=== PATIENT | male | born 1970 | race Caucasian/White ===

== ENCOUNTER → 2018-03-04 08:39 | Outpatient (REF) | payer SELFPAY | LOC: OM 08:39 | PROVIDERS: PCP Family Medicine; Visit Provider Nurse Practitioner Family | DX: Z02.79 Encounter for issue of other medical certificate (principal) ==

== ENCOUNTER 2018-03-26 11:12 | Outpatient (CLI) | payer OTHER, SELFPAY ==
[2018-03-26 12:57] LABS: ALT 31 U/L (12-78); AST 18 U/L (15-37); Albumin 3.9 g/dL (3.4-5.0); Alkaline Phosphatase 85 U/L (46-116); BUN 24 mg/dL (7-18); Bilirubin, Total 0.4 mg/dL (0.2-1.0); CREATININE 1.15 mg/dL (0.70-1.30); Calcium 9.8 mg/dL (8.5-10.1); Chloride 100 mmol/L (98-107); Cholesterol 172 mg/dL (50-200); Glucose 97 mg/dL (70-100); HDL Cholesterol 34 mg/dL (40-60); LDL CHOLESTEROL 125 mg/dL (<100); Potassium 4.7 mmol/L (3.5-5.1); Sodium 138 mmol/L (136-145); Total Protein 7.6 g/dL (6.4-8.2); Triglyceride 107 mg/dL (30-150)
== END 2018-03-26 11:32 ==
PROVIDERS: PCP Family Medicine; Visit Provider Family Medicine
DX: I10 Essential (primary) hypertension (principal)
CPT/HCPCS: 36415; 80053; 80061; 83721

== ENCOUNTER 2018-09-27 08:02 | Emergency (ER) | payer OTHER, SELFPAY ==
[2018-09-27 08:08] VITALS: BP 161/97; PULSE 102; RESP 20; TEMP 36.7; O2SAT 96
--- NOTE | 2018-09-27 08:31 | DI.RAD_ITS ---
SYMPTOM/DIAGNOSIS: LT RIB PAIN WORSE WITH COUGHING AND MOVEMENT LEFT RIBS AND PA AND LATERAL CHEST: No priors. Heart size and pulmonary vasculature are within normal limits. The lungs are clear. No effusions or pneumothoraces are identified. Mild degenerative changes are seen in the spine. There is a question of cortical irregularity at the anterior lateral aspect of the left ninth rib and a nondisplaced fracture could not be excluded. IMPRESSION: Question of a nondisplaced fracture of the anterior lateral aspect of the left ninth rib.
--- NOTE | 2018-09-27 09:11 | ED.GENADUL_ITS ---
Discharge Plan Disposition Patient Disposition: HOME Condition: Stable Discharge Details Chief Complaint: Chest/Rib Clinical Impression: Left rib fracture, Chronic cough, Post-nasal drip, History of environmental allergies Primary Care Provider: Flor Ace ED Provider: Sophie Ag Home Meds and New Rx's Prescriptions: Continued multivitamin [Daily Vitamin] 1 EACH tablet 1 tab PO DAILY RF: 0 ascorbic acid (vitamin C) 1,000 MG tablet 1,000 mg PO DAILY RF: 0 aspirin 325 MG tablet,delayed release (DR/EC) 325 mg PO DAILY RF: 0 albuterol sulfate [Proventil HFA] 6.7 GM HFA aerosol inhaler 1 puff Inhalation Q6H PRN Qty: 3 RF: 12 lisinopril-hydrochlorothiazide 1 EACH tablet 1 tab PO DAILY Qty: 90 RF: 12 acetaminophen [Tylenol] 325 MG tablet 650 mg PO Q6H PRN PRNQty: 180 RF: 0 ibuprofen 200 MG tablet 600 mg PO Q8H PRN PRNQty: 180 RF: 0 Discharge Instructions Instructions: Rib Fracture (ED), Allergies (ED), Acute Cough (ED) Additional Instructions: Alternate tylenol and motrin as needed and directed for pain. Continue to use the incentive spirometer as directed to help with deep breaths to prevent pneumonia. Alternate ice and heat to the affected area several times daily for 20 minutes at a time. Take [id number] allergy medication to help with seasonal or environmental allergies that may be the cause of your postnasal drip and chronic cough. Oral medication choices include Anneliese, Zyrtec or Claritin. Nasal spray choices include Nasacort, Nasonex or Flonase. You can try either an oral medication or nasal spray or both at the same time. Call your primary care doctor today to schedule follow-up appointment for reevaluation to discuss whether there is additional treatment required for your postnasal drip and cough or whether you need referral to ENT or pulmonary for evaluation. Return immediately to the emergency department any worsening or new concerning symptoms. Discharge Data Discharge Physician: Sophie Ag Medical Decision Making 48-year-old male who presents with left lateral rib pain for the past 2 weeks, worse this morning. Pain worse with deep breath, movement or cough and has no pain at all at rest. He also admits to a history of mainly dry and occasionally productive cough as well as postnasal drip over the past 2 months. He has a history of seasonal and environmental allergies to dust, pollen, and has 2 dogs at home. He denies fever, shortness of breath, anterior chest pain, nausea, vomiting or dizziness. He has no DVT/PE risk factors. He is not a smoker. His blood pressure is mildly elevated, he has a history of hypertension. Remainder vitals within normal limits. HR 80s on my evaluation. Afebrile, with normal respiratory rate and oxygen saturation. He has a localized area of tenderness to palpation left lateral lower rib cage. Otherwise his lungs are clear to auscultation. His abdomen is soft and nontender. He appears nontoxic. Due to patient's age and history of hypertension an EKG was obtained on arrival and notes a rate of 81, sinus with Q waves in the inferior and lateral leads. Patient denies a known history of HI. There are no acute ST findings. This is most likely appears musculoskeletal as his pain is reproducible. The so urce of his chronic cough appears most likely due to allergies causing postnasal drip. He denies any tearing or ripping chest pain so doubt dissection. He has no DVT/PE risk factors. PERC negative. Will obtain a left rib and PA lateral chest x-ray. 1000 -- notes a left ninth rib fracture but no other acute findings. Patient declines pain medication here or on discharge. He was given an incentive spirometer to encourage deep breathing to prevent pneumonia. Discussed with patient that the source of his chronic cough can likely be allergies and he is recommended to take oral or intranasal allergy medication [id number]. He declines any prescriptions for Motrin or allergy medication. He is instructed to follow-up with his primary care doctor for reevaluation and for referral to ENT or pulmonary if needs further evaluation including scope or pulmonary function testing. Patient instructed to return here immediately with any worsening or new concerning symptoms. Medical Records Medical records reviewed: Yes I reviewed the patient's medical records. Imaging Data Radiologic Study: Radiologist's impression: LEFT RIBS AND PA AND LATERAL CHEST: No priors. Heart size and pulmonary vasculature are within normal limits. The lungs are clear. No effusions or pneumothoraces are identified. Mild degenerative changes are seen in the spine. There is a question of cortical irregularity at the anterior lateral aspect of the left ninth rib and a nondisplaced fracture could not be excluded. IMPRESSION: Question of a nondisplaced fracture of the anterior lateral aspect of the left ninth rib. ECG Data Attestation: I personally reviewed and interpreted this ECG (s) as follows: Interpretation: Rate of 81, sinus, Q waves noted in 2, 3, aVF, V5 and V6. No acute ST elevation or depression. QTc 422. QRS 112. HPI General Mode of arrival: ambulatory . Date/Time Provider Initiated Documentation: 09/27/18 08:30 . Limitations to Documentation: no limitations . Information obtained by: patient . HPI Narrative: Patient is a 48-year-old male who presents to the ED with a complaint of left lateral rib pain for the past 2 weeks, worse this morning. 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 He states he is also had a dry cough which is occasionally productive over the past 2 months. He also admits to postnasal drip and a history of environmental and seasonal allergies. He states his rib pain is completely gone at rest, and only occurs with movement, coughing or deep breath. He states he took Tylenol this morning with some relief. He denies any fever, anterior chest pain, shortness of breath, nausea, vomiting, dizziness. He also denies any leg pain or swelling, recent travel or recent surgeries. Related Data Home Medications Medication Instructions Recorded Confirmed ascorbic acid (vitamin C) 1,000 mg PO DAILY 07/22/13 09/27/18 multivitamin [Daily Vitamin] 1 tab PO DAILY 07/22/13 09/27/18 acetaminophen [Tylenol] 650 mg PO Q6H PRN PRN #180 tab 08/17/15 09/27/18 ibuprofen 600 mg PO Q8H PRN PRN #180 tablet 08/17/15 09/27/18 aspirin 325 mg PO DAILY tab-cap 10/19/15 09/27/18 albuterol sulfate [Proventil HFA] 1 puff INHALATION Q6H PRN #3 03/05/17 09/27/18 inhaler lisinopril 20 1 tab PO DAILY #90 tab-cap 03/12/18 09/27/18 mg-hydrochlorothiazide 12.5 mg tablet Previous Rx's Medication Instructions Recorded acetaminophen [Tylenol] 650 mg PO Q6H PRN PRN #180 tab 08/17/15 ibuprofen 600 mg PO Q8H PRN PRN #180 tablet 08/17/15 lisinopril 20 1 tab PO DAILY #90 tab-cap 03/12/18 mg-hydrochlorothiazide 12.5 mg tablet Allergies Allergy/AdvReac Type Severity Reaction Status Date / Time enviromental Allergy rhinitis, Uncoded 09/27/18 08:11 itchey, burn General Stated Complaint: Chest/Rib JESSEE: 3 Review of Systems Review of Systems All systems reviewed & are unremarkable except as noted in HPI and below Constitutional Reports as per HPI, Denies chills and Denies fever(s) Eyes Denies blurry vision ENT Denies dizziness, Denies sore throat and Denies throat swelling Cardiovascular Reports chest pain and Denies dyspnea Respiratory Denies cough and Denies dyspnea Gastrointestinal Denies abdominal pain, Denies diarrhea and Denies vomiting Genitourinary Denies hematuria and Denies dysuria Musculoskeletal Denies back pain and Denies numbness Integumentary/Breasts Denies lesions and Denies rash Neurologic Denies dizziness, Denies focal weakness and Denies numbness Allergic/Immunologic Denies throat swelling [facility] Medical History Annual physical exam (Resolved) Annual physical exam (Resolved 10/19/15) Disorder of skin (Resolved) Elevated blood pressure reading (Resolved) S/P vasectomy (Resolved) Asthma Seasonal allergies Surgical History H/O arthroscopy of knee (Resolved) S/P meniscectomy (Resolved) Arthroplasty of knee (~1992) Excision, Skin Mass (~10/2007) Vasectomy Family History Mother Diabetes Essential hypertension Father Essential hypertension Alcohol abuse Prostate cancer Maternal Grandfather Essential hypertension Heart disease Maternal Grandmother Breast cancer Skin cancer Social History household members: other details: 3 highest education level completed: Bachelor's degree current occupational status: employed current occupation: [employer] pets and animals: Yes pets and animals: dog(s) what type of physical activity do you participate in: walking frequency: 5-6 times per week Smoking and Tabacco status: Never alcohol intake: current alcohol intake frequency: a few times a month substance use type: does not use pete/anabaptist: No preference special pete needs: No Exam Const General: cooperative and healthy appearing Orientation: alert and awake [facility] Head: normal to inspection Ears: hearing grossly normal bilaterally, external ears normal and TM's normal bilaterally General nose exam: external nose normal Face and sinus: normal facial exam Mouth: oral mucosae normal Teeth and gingiva: dentition normal Throat: posterior oropharynx normal, uvula midline, no peritonsillar masses and no postnasal drainage Eyes General: appearance normal, both eyes and all related structures Eyelids: eyelids normal EOM: EOM intact bilaterally Neck Neck: normal visual inspection Lymphatic: no lymphadenopathy noted Chest Chest: normal inspection of the chest, no crepitus, no masses, tenderness (Left lateral lower rib ), No rash and other (no ecchymoses or open wounds) Resp Effort & Inspection: normal respiratory effort and able to speak in complete sentences Auscultation: clear to auscultation bilaterally Cardio Rate: regular rate Rhythm: regular rhythm GI Inspection: normal to inspection Palpation: soft, not firm, no guarding, no hepatosplenomegaly, no masses and nontender Auscultation: normal bowel sounds Skin General skin exam: no rashes or lesions noted Neuro General: alert and awake Cognition: normal cognition Speech: speech normal Gait: normal gait Motor: muscle tone normal throughout Sensory Exam: no sensory deficits noted Extrem General: normal to inspection, full ROM, normal capillary refill and no edema Psych Appearance: grossly normal Mental Status: mental status grossly normal Speech and Movement: speech and movement normal Affect: normal affect Thought Process: normal Course Vital Signs Temperature 98.1 F 09/27/18 08:08 Pulse 102 H 09/27/18 08:08 Respiratory Rate 20 09/27/18 08:08 Blood Pressure 161/97 H 09/27/18 08:08 Pulse Oximetry 96 09/27/18 08:08 Temperature 98.1 F 09/27/18 08:08 Temperature Source Temporal Artery Scan 09/27/18 08:08 Pulse 102 H 09/27/18 08:08 Respiratory Rate 20 09/27/18 08:08 Respiratory Effort Non-Labored 09/27/18 08:08 Blood Pressure 161/97 H 09/27/18 08:08 Blood Pressure Position Sitting 09/27/18 08:08 Pulse Oximetry 96 09/27/18 08:08 Oxygen Delivery Method Room Air 09/27/18 08:08 Oxygen Flow Rate 0 09/27/18 08:08 Pain Level 2 09/27/18 08:08
--- NOTE | 2018-09-27 10:17 | NUR.NOTE ---
pt given incentive spectrometer and clear instructions
[2018-09-27 10:21] VITALS: PULSE 89; RESP 15; TEMP 36.7; O2SAT 98
--- NOTE | 2018-09-30 08:38 | CMPROGNOTE_ITS ---
Care Management Progress Note 09/30-Yan called and requested a work note. He was seen by Dr. Ag on Sunday for a fractured rib. Yan works at [employer]. Discussed with Dr. Ag and she is in agreement to write a work note. 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 Sommer, Director Of Enterprise Architecture notified of the above. Yan has this CM's contact information if further assistance is needed.
== END 2018-09-27 10:20 | disposition home or self-care (01) ==
PROVIDERS: Emergency Provider Physician Assistant; PCP Family Medicine
DX: R09.82 Postnasal drip (principal); J30.1 Allergic rhinitis due to pollen; R05 Cough; S22.32XA Fracture of one rib, left side, initial encounter for closed fracture; X50.9XXA Other and unspecified overexertion or strenuous movements or postures, initial encounter; I10 Essential (primary) hypertension
CPT/HCPCS: 93005; 99284; 71046; 71100; 93010; 99285

== ENCOUNTER 2019-09-18 03:50 | Outpatient (CLI) | payer OTHER, SELFPAY ==
--- NOTE | 2019-09-17 14:00 | NS.NUTBLAN_ITS ---
Description: Yan has been referred for Medical Nutrition Therapy for Hypertension, Morbid obesity, excessive weight gain in last 6 months (up 40 lbs) due to recent knee injury. accompanied him. Wt: 390, Ht: 6'4 BMI:47. Typical Weight: 275-290 lbs. Diet recall indicates 2 large meals daily, reliance on convenience foods and no cardio exercise. Yan is motivated to lose weight and get better control of his HTN as he is aware of the dangers of obesity/HTN and mortality. is very supportive. Nutritional Diagnosis: Morbid Obesity, Excessive oral intake of food/beverages, lack of exercise. Assessment: Yan has always been overweight but has gained over 90 lbs in last couple of years due to excessive caloric intake and lack of exercise. Educated Yan and about how to follow a lower carbohydrate diet with 3 meals daily and 30 min of exercise daily. Goal is for Yan to lose 10 lbs per month to initial goal weight of 290 lbs. Recommend follow up monthly to stay motivated. At this time, Yan is not ready to make follow up appointment. Plan: Follow Mediterranean Type Diet with emphasis on fruits, vegetables, lean protein, legumes and limited amount of carbohydrates, exercise daily without using knees until knee injury healed. Provided meal plan and written materials. Yan to eat 3 meals daily and to avoid convenience foods and simple carbohydrates. Yan and very excited and expect he will make some positive changes that will lead to weight loss. Provided my contact information and encouraged to make appt in next 30 days. Thank you for consult. 30 minutes face to face
== END 2019-09-18 04:10 ==
PROVIDERS: PCP Family Medicine; Visit Provider Family Medicine
DX: I10 Essential (primary) hypertension (principal); E66.01 Morbid (severe) obesity due to excess calories; Z71.3 Dietary counseling and surveillance
CPT/HCPCS: 97802

== ENCOUNTER 2019-10-07 11:26 | Outpatient (CLI) | payer OTHER, SELFPAY ==
--- NOTE | 2019-10-07 11:15 | DI.RAD_ITS ---
EXAM: XR KNEE LT 2V AP,LAT CLINICAL HISTORY: L knee pain. TECHNIQUE: 2D digital imaging was performed. COMPARISON: No previous for comparison. FINDINGS: BONES: No acute fracture is present. No bony destructive lesion is seen. JOINTS: The knee is normally aligned. No joint effusion is seen. Mild joint space narrowing and peria rticular spurring in the medial femoral tibial joint. Mild spurring of the posterior patella. SOFT TISSUE: Normal. IMPRESSION: Mild degenerative changes of the left knee. DATA REPOSITORY: RADIATION DOSE DELIVERED:
== END 2019-10-07 11:46 ==
PROVIDERS: PCP Family Medicine; Visit Provider Physician Assistant
DX: M25.562 Pain in left knee (principal); M17.12 Unilateral primary osteoarthritis, left knee
CPT/HCPCS: 73560

== ENCOUNTER 2019-10-22 00:45 | Outpatient (CLI) | payer OTHER, SELFPAY ==
--- NOTE | 2019-10-22 08:42 | DI.MRI_ITS ---
EXAM: MR LOWER JOINT LT WO CLINICAL HISTORY: L knee pain,M23.92,INTERNAL DERANGEMENT. TECHNIQUE: Multiplanar multisequence MRI was performed. COMPARISON: MRI R LOWER JOINT WO CONT from 04/19/2015 XR KNEE LT 2V AP,LAT from 10/07/2019 FINDINGS: The cruciate and collateral ligaments and extensor mechanism appear intact. As seen on plain films, there are degenerative changes of the medial femoral tibial joint. There is mild spurring of the me dial femoral condyle and medial tibial plateau. There is cartilage thinning and irregularity extendi ng down to bone. There degenerative changes of the medial meniscus which is peripherally displaced. The body of the medial meniscus show diffusely abnormal signal. There of the posterior horn appears diminutive. The findings are consistent with a superimposed tear. The lateral meniscus shows no e vidence of tear. There is a small joint effusion. The cartilage overlying the patella shows a small focal defect near the apex which does not extend down to bone. IMPRESSION: Tear superimposed on degenerative changes of the body and posterior horn of the medial meniscus. No ligament tear. DATA REPOSITORY:
== END 2019-10-22 01:05 ==
PROVIDERS: PCP Family Medicine; Visit Provider Orthopaedic Surgery
DX: M25.562 Pain in left knee (principal); M23.92 Unspecified internal derangement of left knee; S83.242A Other tear of medial meniscus, current injury, left knee, initial encounter; M25.462 Effusion, left knee
CPT/HCPCS: 73721

== ENCOUNTER 2020-08-06 01:27 | Outpatient (CLI) | payer OTHER, SELFPAY ==
[2020-08-07 15:57] LABS: COVID-19 RT-PCR Result NEGATIVE (Negative)
== END 2020-08-06 01:47 ==
PROVIDERS: PCP Family Medicine; Visit Provider Student in an Organized Health Care Education/Training Program
DX: Z20.828 Contact with and (suspected) exposure to other viral communicable diseases (principal); Z01.818 Encounter for other preprocedural examination
CPT/HCPCS: U0003

== ENCOUNTER 2020-08-10 10:22 | Day surgery (SDC) | payer OTHER, SELFPAY ==
[2020-08-10] VITALS (9 sets, daily range): BP systolic 111–151; BP diastolic 62–92; PULSE 78–98; RESP 11–22; TEMP 36–37.2; O2SAT 91–96
--- NOTE | 2020-08-10 09:54 | PDOC.DSDIS_ITS ---
Discharge Plan Disposition Patient Disposition: HOME Condition: Good Discharge Details Reason For Visit: Internal derangement of left knee Attending Provider: Héctor Perdomo Primary Care Provider: Flor Ace Home Meds and New Rx's Prescriptions: New acetaminophen 500 mg tablet 500 mg PO Q6H PRN (Reason: pain) Qty: 60 RF: 2 hydrocodone-acetaminophen 5-325 mg tablet 1 tab PO Q6H PRN (Reason: severe pain) Qty: 4 RF: 0 ibuprofen 600 mg tablet 600 mg PO TID PRN (Reason: pain) Qty: 60 RF: 2 Continued fexofenadine [Anneliese Allergy] 180 mg tablet 180 mg PO DAILY PRNRF: 0 aspirin 81 mg tablet,delayed release (DR/EC) 81 mg PO DAILY RF: 0 cholecalciferol (vitamin D3) 50 mcg (2,000 unit) capsule 50 mcg PO DAILY RF: 0 multivitamin [Daily Vitamin] 1 EACH tablet 1 tab PO DAILY RF: 0 ascorbic acid (vitamin C) 1,000 MG tablet 1,000 mg PO DAILY RF: 0 albuterol sulfate 90 mcg/actuation HFA aerosol inhaler 2 puff IH Q6H PRN (Reason: shortness of breath or wheezing) Qty: 18 RF: 4 lisinopril-hydrochlorothiazide 20-12.5 mg tablet 1 tab PO DAILY Qty: 90 RF: 12 Discontinued acetaminophen [Tylenol] 325 MG tablet 650 mg PO Q6H PRN PRNQty: 180 RF: 0 ibuprofen 200 MG tablet 600 mg PO Q8H PRN PRNQty: 180 RF: 0 Discharge Instructions Stand Alone Forms: [facility] Referrals: Héctor Perdomo MD [ [facility] STAFF PHYSICIAN] - Equipment/Supplies: Walker Activity:: Elevate Remove Dressings/Wound Care:: 72 hours Shower/Bathe:: 72 hours Diet:: As Tolerated Discharge Orders Discharge Orders: Discharge Order (Routine); Ordered 08/10/20 Ordered By: Shira Butterfield DS: Diagnosis Discharge Diagnosis (1) Internal derangement of left knee: Status: Acute
[2020-08-10] MEDS: Lactated Ringers 1,000 ML 80 ML IV (11:30)
[2020-08-10] MEDS: ceFAZolin 3,000 MG in Normal Saline 100 ML 200 MG IVPB (12:23)
[2020-08-10] MEDS: Bupivacaine 0.5% Pres-Free 30 ML VIAL (13:09)
[2020-08-10] MEDS: Albuterol/Ipratropium 3 ML UPD VIAL UPD (13:47)
--- NOTE | 2020-08-11 14:09 | W.PM.OP ---
Date of service: 08/10/20 Time of Service: 14:09 Operative Note Operative Note DATE OF PROCEDURE: 08/10/20 PRE-OP DIAGNOSIS: Left Knee Medial Meniscus Tear POST-OP DIAGNOSIS: same PROCEDURE: Left Knee Arthroscopic Partial Medial Menisectomy SURGEON: Héctor Perdomo ANESTHESIA: GETA ESTIMATED BLOOD LOSS: 0 PATHOLOGY: none sent TOURNIQUET TIME: 0 COMPLICATIONS: None Patient was transported to: PACU Patient's condition: stable Indications: Dr. Goss has seen Yan in clinic for symptoms of a meniscus tear. This was confirmed based on MRI and exam findings. Nonoperative measures were exhausted but disability and pain persisted. He was booked for a knee arthroscopy but due to workman's compensation and COVID issues this got delayed. Dr. Goss retired so I assumed his care. Over the phone, I discussed knee arthroscopy with meniscal intervention with the patient. I previously operated on his right knee for similar pathology a few years ago. I reviewed the risks of the procedure to include, but not limited to, bleeding, infection, pain, stiffness, damage to nerves or vessels, recurrence, blood clot. Despite these risks, the patient elected to proceed. 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 The consent was reviewed with the patient and signed. The history and physical was updated. All questions were answered. Yan was taken back to the operating room. The patient was placed into the supine position on the operating room table. A nonsterile tourniquet was placed high onto the leg but not used. All bony prominences were well padded. Prophylactic antibiotics in the form of Cefazolin were administered. The left leg was then prepped with Chloraprep and draped in a standard fashion with stockinette and extremity drape. A timeout to confirm correct identity, side and site, procedure, allergies, anesthesia, and medical concerns was performed. The leg was placed into a pneumatic leg wallis, [id number]. A standard lateral portal was made at the lateral border of the patella tendon in line with the inferior pole of the patella, soft spot. The skin and deep tissue was incised sharply and the blunt trochar was inserted atraumatically. A diagnostic arthroscopy was performed and the findings are listed above. The suprapatellar pouch had moderate significant inflammatory change. The patellofemoral articulation showed no articular damage as well as good tracking. The lateral gutter had no loose bodies and the medial gutter had no loose bodies. The knee was brought into some valgus stress in extension to open the medial compartment. A medial portal was made, localized by a spinal needle. The portal was created with an #11 blade through skin and capsule under direct visualization avoiding any meniscal injury. A probe was then inserted into the medial compartment. The medial compartment was fully inspected. The chondral surface of the tibia showed Grade II chondromalacia and the surface of the femur showed Grade II chondromalacia. The medial meniscus had a complex meniscal tear. After evaluation, the meniscus was debrided down to a stable base using a series of biters and arthroscopic felix. It was probed afterwards to confirm that the tear had been removed and the meniscus was stable. Cartilage surfaces were debrided of any flaps, leaving any intact fibers. The notch was then inspected which showed an intact ACL and an intact PCL. The leg was then brought into a figure of 4 position. The lateral compartment was fully inspected with the arthroscope and a probe. The chondral surface of the lateral femur showed no significant chondromalacia. The chondral surface of the lateral tibia showed no significant chondromalacia. The lateral meniscus had no meniscal tear. The arthroscope was brought back into the suprapatellar pouch and the leg was in full extension. The knee was thoroughly irrigated with the arthroscopic fluid on high flow and pressure. Inflow was stopped and excess fluid was removed. The wounds were closed with 4-0 Nylon. They were dressed with Xeroform, 4x4 gauze, ABD pad, Kerlix and an SHAE wrap. A cryo-cuff was applied. The patient tolerated the procedure well and was returned to the Same Day Surgery area in a stable condition suffering no known complication.
== END 2020-08-10 16:03 | disposition home or self-care (01) ==
LOC: SUR 10:23
PROVIDERS: PCP Family Medicine; Visit Provider Student in an Organized Health Care Education/Training Program
PROC: (CPT 29870; principal; 2020-08-10 13:15)
DX: S83.232A Complex tear of medial meniscus, current injury, left knee, initial encounter (principal); X58.XXXA Exposure to other specified factors, initial encounter; Y99.0 Civilian activity done for income or pay; I10 Essential (primary) hypertension; J45.909 Unspecified asthma, uncomplicated
CPT/HCPCS: 29881; J0690; J1100; J1885; J2001; J2405; J2704; J3010; J7620

== ENCOUNTER 2020-10-22 11:02 | Outpatient (CLI) | payer OTHER, SELFPAY ==
--- NOTE | 2020-10-22 08:15 | DI.RAD_ITS ---
EXAM: XR KNEE RT 4V AP,LAT,BRICE,PAT CLINICAL HISTORY: right knee pain TECHNIQUE: COMPARISON: CR XR KNEE LT 2V AP,LAT from 10/07/2019 FINDINGS: Four views were obtained. Note is made of chondrocalcinosis the lateral tibiofemoral joint. There i s moderate narrowing of the cartilaginous joint space of the medial tibiofemoral joint. Otherwise ca rtilaginous joint spaces are fairly well maintained. Minimal marginal osteophyte formation noted at multiple sites. No gross knee joint effusion seen on the lateral view. IMPRESSION: Degenerative changes with moderate loss of cartilaginous joint space of medial tibiofemoral joint. RADIATION DOSE DELIVERED: Total DLP
== END 2020-10-22 11:03 | disposition home or self-care (01) ==
LOC: DIORS 11:02
PROVIDERS: PCP Family Medicine; Referring Provider Family Medicine; Visit Provider Student in an Organized Health Care Education/Training Program
DX: M17.11 Unilateral primary osteoarthritis, right knee (principal)
CPT/HCPCS: 73564

== ENCOUNTER 2020-11-15 13:17 | Outpatient (REF) | payer OTHER, SELFPAY ==
[2020-11-15 14:20] LABS: Hemoglobin A1C 5.9 % (<5.7)
[2020-11-15 14:24] LABS: ALT 35 U/L (16-63); AST 19 U/L (15-37); Albumin 3.9 g/dL (3.4-5.0); Alkaline Phosphatase 77 U/L (46-116); Anion Gap 9.7 mmol/L (3-11); BUN 18 mg/dL (7-18); Bilirubin, Total 0.5 mg/dL (0.2-1.0); CO2 28.3 mmol/L (21.0-32.0); Calcium 9.1 mg/dL (8.5-10.1); Calculated LDL 126 mg/dL (<100); Chloride 101 mmol/L (98-107); Cholesterol 184 mg/dL (<200); Glucose 103 mg/dL (74-106); HDL Cholesterol 32 mg/dL (40-60); Potassium 4.5 mmol/L (3.5-5.1); Sodium 139 mmol/L (136-145); TSH (W/Ref FT4) 1.63 uIU/mL (0.36-3.74); Total Protein 7.6 g/dL (6.4-8.2); Triglyceride 131 mg/dL (<150)
== END 2020-11-15 13:18 | disposition home or self-care (01) ==
LOC: LBN 13:17
PROVIDERS: PCP Family Medicine; Visit Provider Family Medicine
DX: Z00.00 Encounter for general adult medical examination without abnormal findings (principal); I10 Essential (primary) hypertension; E11.9 Type 2 diabetes mellitus without complications; Z68.43 Body mass index [BMI] 50.0-59.9, adult
CPT/HCPCS: 80053; 80061; 83036; 84443

== ENCOUNTER 2021-08-03 01:14 | Outpatient (CLI) | payer OTHER, SELFPAY ==
--- NOTE | 2021-08-03 08:18 | DI.RAD_ITS ---
Exam(s) XR KNEE LT 3V AP,LAT,BRICE EXAM: XR KNEE LT 3V AP,LAT,BRICE CLINICAL HISTORY: knee pain,,25.551,M25.552. TECHNIQUE: 2D digital imaging was performed. COMPARISON: CR XR KNEE LT 2V AP,LAT from 10/07/2019 MR MR LOWER JOINT LT WO from 10/22/2019 CR XR KNEE RT 4V AP,LAT,BRICE,PAT from 10/22/2020 FINDINGS: There is no evidence of fracture nor prominent joint effusion. There is moderate narrowing of the medial compartment again noted. Also small marginal osteophyte of f the medial compartment. Lateral compartment maintains normal height, however, there is suggestion of a possible osteochondral defect on the inner aspect of the lateral femoral condyle.. No obvious f indings in the patellofemoral compartment. Bone density is normal. Small degenerative subarticular cysts are noted in the sub spinous tibial plateau. IMPRESSION: Medial compartment degenerative narrowing. Possible osteochondral defect in the lateral femoral cond yle. No obvious joint effusion. If clinically indicated follow-up MRI can be performed DATA REPOSITORY: RADIATION DOSE DELIVERED:
--- NOTE | 2021-08-03 08:21 | DI.RAD_ITS ---
Exam(s) XR KNEE RT 3V AP,LAT,BRICE EXAM: XR KNEE RT 3V AP,LAT,BRICE CLINICAL HISTORY: knee pain,M25.552,M25.551. TECHNIQUE: 2D digital imaging was performed. COMPARISON: CR XR KNEE RT 4V AP,LAT,BRICE,PAT from 10/22/2020 FINDINGS: There is no evidence of fracture or joint effusion. Moderate degenerative changes are noted in the medial compartment, unchanged from 10/22/2020. Chondr ocalcinosis in the lateral compartment is also unchanged. No osseous lesions evident. IMPRESSION: As above. No significant radiographic change compared to prior study of 10/22/2020. DATA REPOSITORY: RADIATION DOSE DELIVERED:
== END 2021-08-03 01:34 ==
PROVIDERS: PCP Family Medicine; Visit Provider Family Medicine
DX: M25.561 Pain in right knee (principal); M25.562 Pain in left knee; M11.261 Other chondrocalcinosis, right knee; M17.0 Bilateral primary osteoarthritis of knee
CPT/HCPCS: 73562

== ENCOUNTER 2022-05-29 08:50 | Outpatient (CLI) | payer OTHER, SELFPAY ==
[2022-05-29 10:59] LABS: Hemoglobin A1C 5.7 % (<5.7)
[2022-05-29 11:07] LABS: ALT 32 U/L (16-63); AST 22 U/L (15-37); Albumin 3.8 g/dL (3.4-5.0); Alkaline Phosphatase 68 U/L (46-116); Anion Gap 9.8 mmol/L (3-11); BUN 20 mg/dL (7-18); Bilirubin, Total 0.4 mg/dL (0.2-1.0); CO2 26.2 mmol/L (21.0-32.0); Calcium 9.3 mg/dL (8.5-10.1); Calculated LDL 108 mg/dL (<100); Chloride 102 mmol/L (98-107); Cholesterol 162 mg/dL (<200); Estimated GFR 92.26 (mL/min/1.73m2); Glucose 97 mg/dL (74-106); HDL Cholesterol 40 mg/dL (40-60); Potassium 3.9 mmol/L (3.5-5.1); Sodium 138 mmol/L (136-145); Total Protein 7.8 g/dL (6.4-8.2); Triglyceride 70 mg/dL (<150)
[2022-05-29 18:12] LABS: PSA, Diagnostic 0.4 ng/mL (<=2.5)
== END 2022-05-29 08:51 | disposition home or self-care (01) ==
LOC: LOS 08:50
PROVIDERS: PCP Family Medicine; Referring Provider Family Medicine; Visit Provider Family Medicine
DX: Z00.00 Encounter for general adult medical examination without abnormal findings (principal); E11.9 Type 2 diabetes mellitus without complications
CPT/HCPCS: 36415; 80053; 80061; 83036; 84153; 84443

== ENCOUNTER 2023-08-24 09:02 | Outpatient (CLI) | payer OTHER, SELFPAY ==
--- NOTE | 2023-08-24 08:15 | DI.RAD_ITS ---
Exam(s) XR KNEE LT 3V AP,LAT,BRICE EXAM: XR KNEE LT 3V AP,LAT,BRICE CLINICAL HISTORY: LEFT KNEE PAIN. TECHNIQUE: 2D digital imaging was performed of the left knee. Three images were obtained. AP, late ral and PA tunnel views were obtained. COMPARISON: CR XR KNEE LT 3V AP,LAT,BRICE from 08/03/2021 FINDINGS: BONES: No acute fracture is present. No bony destructive lesion is seen. JOINTS: There is moderate narrowing of the medial femoral tibial joint. There also small osteophytes seen. There is a small joint effusion. Chronic cortical irregularity is seen in the medial aspect of the lateral femoral condyle which may represent osteochondral defect. No loose body. SOFT TISSUE: Normal. IMPRESSION: Left knee arthrosis. DATA REPOSITORY: RADIATION DOSE DELIVERED:
== END 2023-08-24 09:03 | disposition home or self-care (01) ==
LOC: DIORS 09:04
PROVIDERS: PCP Family Medicine; Referring Provider Family Medicine; Visit Provider Student in an Organized Health Care Education/Training Program
DX: M17.12 Unilateral primary osteoarthritis, left knee (principal)
CPT/HCPCS: 73562

== ENCOUNTER 2024-04-15 02:30 | Outpatient (CLI) | payer OTHER, SELFPAY ==
[2024-04-15 12:50] LABS: HCT 44.5 % (40.0-50.0); HGB 14.2 g/dL (13.5-17.5); MCH 28.8 pg (27.0-33.0); MCHC 31.9 % (32.0-36.0); MCV 90 fL (80-95); MPV 10.4 fL (8.0-11.0); Platelet Count 262 10^3/uL (130-400); RBC 4.93 10^6/uL (4.36-5.78); RDW-SD 46.7 fL; WBC 9.52 10^3/uL (4.4-10.8)
[2024-04-15 13:07] LABS: ALT 36 U/L (16-63); AST 19 U/L (15-37); Albumin 3.8 g/dL (3.4-5.0); Alkaline Phosphatase 70 U/L (46-116); Anion Gap 7.6 mmol/L (3-11); BUN 16 mg/dL (7-18); Bilirubin, Total 0.53 mg/dL (0.2-1.0); CO2 31.4 mmol/L (21.0-32.0); CREATININE 1.1 mg/dL (0.70-1.30); Calcium 9.3 mg/dL (8.5-10.1); Calculated LDL 105 mg/dL (<100); Chloride 100 mmol/L (98-107); Cholesterol 167 mg/dL (<200); Estimated GFR 81.28 (mL/min/1.73m2); Glucose 102 mg/dL (74-106); HDL Cholesterol 38 mg/dL (40-60); Potassium 3.8 mmol/L (3.5-5.1); Sodium 139 mmol/L (136-145); TSH (W/Ref FT4) 1.48 uIU/mL (0.36-3.74); Total Protein 8.1 g/dL (6.4-8.2); Triglyceride 120 mg/dL (<150)
[2024-04-15 13:41] LABS: Hemoglobin A1C 6.4 % (<5.7)
== END 2024-04-15 02:31 | disposition home or self-care (01) ==
LOC: LOS 02:30
PROVIDERS: PCP Family Medicine; Visit Provider Family Medicine
DX: E11.9 Type 2 diabetes mellitus without complications (principal); Z68.43 Body mass index [BMI] 50.0-59.9, adult; E66.01 Morbid (severe) obesity due to excess calories; I10 Essential (primary) hypertension; E03.9 Hypothyroidism, unspecified
CPT/HCPCS: 36415; 80053; 80061; 85027; 83036; 84443

== ENCOUNTER 2024-11-28 01:30 | Outpatient (CLI) | payer OTHER, SELFPAY ==
[2024-11-28 12:46] LABS: Hemoglobin A1C 6.1 % (<5.7)
[2024-11-28 13:15] LABS: Vitamin B12 294 pg/mL (193-986)
[2024-11-28 20:55] LABS: PSA, Screening 0.3 ng/mL (<=3.5)
[2024-12-01 11:14] LABS: Hepatitis C Ab w Rflx HCV PCR Negative (Negative)
== END 2024-11-28 01:31 | disposition home or self-care (01) ==
LOC: LOS 01:30
PROVIDERS: PCP Family Medicine; Visit Provider Family Medicine
DX: E11.9 Type 2 diabetes mellitus without complications (principal); Z11.59 Encounter for screening for other viral diseases; Z00.00 Encounter for general adult medical examination without abnormal findings
CPT/HCPCS: 36415; 84153; 86803; 82607; 83036